=== PATIENT | female | born 1960 | race African-American/Black ===

== ENCOUNTER 2020-07-14 22:51 | Emergency (ER) | payer OTHER ==
[~2020-07-14] VITALS: Ht 172.7 cm; Wt 63.0 kg
[2020-07-14 23:12] VITALS: BP 180/92
--- NOTE | 2020-07-14 23:17 | NUR ---
PT AMBULATED TO ER BED 11
[2020-07-14] MEDS ORDERED: KETOROLAC 60 MG/2 ML VIAL IM ONE (23:25)
--- NOTE | 2020-07-14 23:25 | NUR ---
ERMD AT BEDSIDE EVALUATING PT
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
[2020-07-14] MEDS ORDERED: IBUPROFEN 600 MG TAB PO ONE (23:35)
--- NOTE | 2020-07-14 23:42 | NUR ---
PT REFUSED TORADOL SHOT. REQUESTING IBUPROFEN.
[2020-07-15 00:05] VITALS: BP 150/90
--- NOTE | 2020-07-15 00:05 | NUR ---
Patient discharged with v/s stable. Written and verbal after care instructions given and explained. Patient alert, oriented and verbalized understanding of instructions. Ambulatory with steady gait. All questions addressed prior to discharge. ID band removed. Patient advised to follow up with PMD. Rx of NORCO AND IBUPROFEN given. Patient educated on indication of medication including possible reaction and side effects. Opportunity to ask questions provided and answered.
== END 2020-07-15 00:05 | disposition home or self-care (01) ==
LOC: MED 22:51
DX: H57.89 Other specified disorders of eye and adnexa (principal); R51 Headache; Z88.5 Allergy status to narcotic agent; W22.8XXA Striking against or struck by other objects, initial encounter; Y93.89 Activity, other specified; Y92.89 Other specified places as the place of occurrence of the external cause; Y99.8 Other external cause status
CPT/HCPCS: 99283; J1885